=== PATIENT | male | born 1955 | race Caucasian/White ===

== ENCOUNTER 2017-07-25 18:36 | Emergency (ER) | payer MEDICARE ==
[2017-07-25 18:50] VITALS: BP 148/84; PULSE 91; RESP 16; TEMP 98.8; O2SAT 97
[2017-07-25] MEDS ORDERED: Oxycodone/Acetaminophen 5/325 mg Tab PO STA (19:19)
--- NOTE | 2017-07-25 19:20 | ED PDOC ---
Lower Extremity Pain/Injury Time Seen by Provider: 07/25/17 18:55 Chief Complaint (Nursing): Lower Extremity Problem/Injury Chief Complaint (Provider): knee pain History Per: Patient Additional Complaint(s): 61 yo male, PMH of HIV, presents to ED for evaluation of left swelling and pain s/p trip and fall at home, landing on knee. Took 2 advil at 4pm. Past Medical History Vital Signs: Last Vital Signs Temp 98.8 F 07/25/17 18:48 Pulse 91 H 07/25/17 18:48 Resp 16 07/25/17 18:48 BP 148/84 07/25/17 18:48 Pulse Ox 97 07/25/17 18:48 - Medical History PMH: HIV Denies: Chronic Kidney Disease - Home Medications Home Medications: Ambulatory Orders Medication Instructions Recorded oxyCODONE/Acetaminophen [Percocet 1 ea PO Q6 PRN #10 tab 07/25/17 5/325 mg Tab] - Allergies Allergies/Adverse Reactions: Allergies Allergy/AdvReac Type Severity Reaction Status Date / Time No Known Allergies Allergy Verified 07/25/17 18:48 - ECG O2 Sat by Pulse Oximetry: 97 Disposition - Clinical Impression Clinical Impression: Patellar fracture - Disposition Condition: STABLE Additional Instructions: follow up with your ortho surgeon MATTI! Prescriptions: oxyCODONE/Acetaminophen [Percocet 5/325 mg Tab] 1 ea PO Q6 PRN #10 tab PRN Reason: Pain, Severe (8-10) Instructions: Patellar Fracture (ED), RICE Therapy (ED) Forms: [email or web address] (Green[place]ic)
[2017-07-25] MEDS ORDERED: Oxycodone/Acetaminophen 5/325 mg Tab ONE (19:43)
--- NOTE | 2017-07-26 12:57 | RAD ---
PROCEDURE: Left Knee Radiographs. HISTORY: Pain. COMPARISON: None. FINDINGS: BONES: There is a suspected oblique nondisplaced fracture of the proximal fibula. There is a comminuted minimally displaced patellar fracture. There is no other fracture identified. 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 There is mild patellofemoral osteoarthritis. JOINT EFFUSION: There is a moderate joint effusion/ hemarthrosis. OTHER FINDINGS: None. IMPRESSION: Comminuted minimally displaced patellar fracture. Suspected oblique nondisplaced proximal fibular fracture. Hemarthrosis.
== END 2017-07-25 20:41 | disposition home or self-care (01) ==
LOC: H.ER 18:36
DX: S82.002A Unspecified fracture of left patella, initial encounter for closed fracture (principal); W01.0XXA Fall on same level from slipping, tripping and stumbling without subsequent striking against object, initial encounter; Y92.009 Unspecified place in unspecified non-institutional (private) residence as the place of occurrence of the external cause